=== PATIENT | female | born 2000 | race African-American/Black ===

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

== ENCOUNTER 2021-08-05 14:01 | Emergency (ER) | payer OTHER ==
[~2021-08-05 14:01] MED LIST: Iopamidol 370 76% 100 ML VIAL ONE
[2021-08-05] MEDS ORDERED: Ketorolac Tromethamine 30 MG/ML VIAL ONE (14:20)
[2021-08-05 14:25] LABS: #Basophils 0.1 thou/uL (0.0-0.2); #Eosinphils 0.1 thou/uL (0.0-0.7); #Lymphocytes 0.4 thou/uL (1.20-3.40); #Monocytes 0.5 thou/uL (0.11-0.59); #Neutrophils 6.7 thou/uL (1.40-6.50); %Basophils 0.8 % (0.0-1.0); %Eosinophils 0.8 % (0.0-10.0); %Lymphocytes 5.4 % (28.0-48.0); %Monocytes 6.4 % (0.0-4.0); %Neutrophils 86.6 % (31.0-61.0); Hemoglobin 12.7 g/dL (12.0-16.0); Mean Corpuscular HGB CONC 30.1 g/dL (32.0-36.0); Mean Corpuscular Hemoglobin 29.1 pg (25.0-35.0); Mean Corpuscular Volume 96.8 fL (78.0-98.0); Mean Platelet Volume 7.4 fL (7.4-10.4); Platelet Count 232 thou/uL (130-400); RBC Distribution Width 12.8 % (11.5-14.5); Red Blood Cell (RBC) Count 4.36 mill/uL (4.00-5.20); White Blood Cell (WBC) Count 7.7 thou/uL (4.8-10.8)
[2021-08-05 14:36] LABS: BHCG - Serum Negative (NEGATIVE); Pregs Control Bar Appear? YES (CONTROL BAR)
[2021-08-05] MEDS ORDERED: Boostrix 0.5 ML (Tdap) VIAL ONE (15:09)
[2021-08-05 15:30] LABS: ALT (SGPT) 23 U/L (8-55); AST (SGOT) 36 U/L (5-34); Alkaline Phosphatase 51 U/L (40-100); Anion Gap 12 mmol/L (10-20); BUN (Urea Nitrogen) 8 mg/dL (7.0-18.7); Bilirubin, Total 0.4 mg/dL (0.2-1.2); Calc. Creatinine Clearance 0 mL/min (70-130); Calcium 8.7 mg/dL (7.8-10.44); Carbon Dioxide 24 mmol/L (22-29); Chloride 104 mmol/L (98-107); Globulin 2.5 g/dL (2.4-3.5); Glucose 82 mg/dL (70-105); Lipase 24 U/L (8-78); Protein, Total 6.5 g/dL (6.0-8.3); Sodium 136 mmol/L (136-145)
[2021-08-05 15:32] LABS: Bilirubin Negative (Negative); Blood, Urine Negative (Negative); Clarity Clear (Clear); Glucose, Urine (Dipstick) Negative (Negative); Ketone, Urine Negative (Negative); Leukocyte Negative (Negative); Nitrite Negative (Negative); Protein, Urine (Dipstick) Trace mg/dL (Neg-Trace); Urobilinogen 0.2 mg/dL (Less than 2); pH, Urine 8.5 (5.0-9.0)
== END 2021-08-05 15:59 | disposition home or self-care (01) ==
LOC: NAV ERS 14:01
DX: S13.9XXA Sprain of joints and ligaments of unspecified parts of neck, initial encounter (principal); S80.11XA Contusion of right lower leg, initial encounter; A08.4 Viral intestinal infection, unspecified; V89.2XXA Person injured in unspecified motor-vehicle accident, traffic, initial encounter
CPT/HCPCS: 70450; 71260; 72125; 74177; 80053; 81003; 83690; 84703; 85025; 90471; 90715; 94760; 96374; J1885; Q9967

== ENCOUNTER 2025-01-27 17:02 | Emergency (ER) | payer OTHER | END 2025-01-27 17:45 | disposition home or self-care (01) | LOC: NAV ERS 17:02 | DX: O99.612 Diseases of the digestive system complicating pregnancy, second trimester (principal); K52.9 Noninfective gastroenteritis and colitis, unspecified; Z3A.17 17 weeks gestation of pregnancy | CPT/HCPCS: 99284 ==

== ENCOUNTER 2025-03-29 19:48 | Emergency (ER) | payer MEDICAID, OTHER ==
[2025-03-29] MEDS ORDERED: Magnesium 2 GM/50 ML BAG (IN WATER) ONE (20:06)
[2025-03-29 20:21] LABS: #Basophils 0.2 thou/uL (0.0-0.2); #Eosinophils 0.9 thou/uL (0.0-0.7); #Lymphocytes 1.8 thou/uL (1.20-3.40); #Monocytes 0.6 thou/uL (0.11-0.59); #Neutrophils 7.2 thou/uL (1.40-6.50); %Basophils 1.9 % (0.0-1.0); %Eosinophils 8.2 % (0.0-10.0); %Lymphocytes 17.0 % (21.0-51.0); %Monocytes 5.8 % (0.0-10.0); %Neutrophils 67.1 % (42.0-75.0); Hematocrit 31.9 % (36.0-47.0); Hemoglobin 10.9 g/dL (12.0-16.0); Mean Corpuscular Hemoglobin 30.6 pg (27.0-31.0); Mean Corpuscular Volume 89.6 fl (78.0-98.0); Platelet Count 171 10x3/uL (130-400); Red Blood Cell (RBC) Count 3.56 mill/uL (4.20-5.40); White Blood Cell (WBC) Count 10.7 10x3/uL (4.8-10.8)
[2025-03-29 20:32] LABS: Glucose, Urine (Dipstick) Negative (Negative); Leukocyte Small (Negative); Protein, Urine (Dipstick) Negative (Neg-Trace); Specific Gravity, Urine 1.010 (1.005-1.030)
[2025-03-29 20:35] LABS: ALT (SGPT) 20 U/L (Less than 34); AST (SGOT) 32 U/L (11-34); Albumin 3.0 g/dL (3.1-4.5); Alkaline Phosphatase 65 U/L (40-110); Anion Gap 12 mmol/L (10-20); BUN (Urea Nitrogen) 11 mg/dL (7.0-18.7); Bilirubin, Total 0.4 mg/dL (0.3-1.2); Calc. Creatinine Clearance 0 mL/min (70-130); Calcium 8.7 mg/dL (7.8-10.44); Carbon Dioxide 22 mmol/L (22-29); Chloride 105 mmol/L (98-107); Globulin 3.0 g/dL (2.4-3.5); Glucose 82 mg/dL (70-105); Potassium 4.2 mmol/L (3.5-5.1); Sodium 135 mmol/L (136-145)
[2025-03-29 20:39] LABS: CAUTI Indications for Culture Pregnancy; RBC/HPF 0-3 HPF (0-3)
[2025-03-29 20:40] LABS: Urine Culture Reflex Yes Yes
== END 2025-03-29 22:07 | disposition home or self-care (01) ==
LOC: NAV ERS 19:48
DX: O16.2 Unspecified maternal hypertension, second trimester (principal); Z3A.26 26 weeks gestation of pregnancy
CPT/HCPCS: 80053; 81001; 85025; 87086; 96374; 96376; J3475